=== PATIENT | female | born 1940 | race Caucasian/White ===

== ENCOUNTER 2020-05-19 00:54 | Inpatient (IN) | payer MEDICARE, OTHER ==
[2020-05-19] VITALS (17 sets, daily range): BP systolic 80–109; BP diastolic 28–62
[~2020-05-19] VITALS: Ht 149.9 cm; Wt 66.0 kg
[2020-05-19 01:20] LABS: BASOPHILS % (AUTO) 0.2 % (0-1); EOSINOPHILS % (AUTO) 0 % (0-6); HEMATOCRIT 33.5 % (35.0-45.0); HEMOGLOBIN 11.3 g/dl (12.0-16.0); LYMPHOCYTES # (AUTO) 0.5 X10'3 (1.1-4.8); LYMPHOCYTES % (AUTO) 3.6 % (21-51); MEAN CORPUSCULAR HEMOGLOBIN 31.7 PG (27.0-31.0); MEAN CORPUSCULAR HGB CONC 33.6 g/dL (33.0-36.5); MEAN CORPUSCULAR VOLUME 94.3 FL (78-98); MONOCYTES # (AUTO) 1.2 X10'3 (0-0.9); MONOCYTES % (AUTO) 8.1 % (2-12); NEUTROPHILS # (AUTO) 13.3 X10'3 (1.8-7.7); NEUTROPHILS % (AUTO) 88.1 % (42-75); PLATELET COUNT 281 X10'3 (140-440); RED BLOOD COUNT 3.55 X10'6 (4.20-5.60); RED CELL DISTRIBUTION WIDTH 12.8 % (11.5-14.5); WHITE BLOOD COUNT 15.1 X10'3 (4.5-11.0)
[2020-05-19 01:32] LABS: ALANINE AMINOTRANSFERASE 402 U/L (12-78); ALBUMIN 3.3 G/DL (3.4-5.0); ALBUMIN/GLOBULIN RATIO 0.9 (1.1-1.5); ALKALINE PHOSPHATASE 225 IU/L (46-116); ANION GAP 12 (8-16); ASPARTATE AMINO TRANSFERASE 628 U/L (10-37); BILIRUBIN,TOTAL 2.9 MG/DL (0.1-1.0); BLOOD UREA NITROGEN 35 MG/DL (7-18); BUN/CREATININE RATIO 16.4 (6.6-38.0); CALCIUM 8.7 MG/DL (8.5-10.1); CHLORIDE 104 MMOL/L (99-107); CREATININE 2.14 MG/DL (0.40-0.90); GLUCOSE 160 MG/DL (70-104); POTASSIUM 4.4 MMOL/L (3.5-5.1); SODIUM 141 MMOL/L (135-145); TOTAL CARBON DIOXIDE 25.3 MMOL/L (24-32); eGFR 22 ML/MIN
[2020-05-19] MEDS ORDERED: SERT100T10 PO (01:50)
[2020-05-19] MEDS ORDERED: HYDR12.55 PO (01:50)
[2020-05-19] MEDS ORDERED: LISI-600 PO (01:50)
[2020-05-19] MEDS ORDERED: METF500T PO (01:50)
[2020-05-19] MEDS ORDERED: MELA10TA PO (01:50)
[2020-05-19] MEDS ORDERED: SIMV-42 PO (01:50)
[2020-05-19] MEDS ORDERED: DIPH25CA52 PO (01:50)
[2020-05-19] MEDS ORDERED: potassium CL 10mEq/100ml bag 100 ML IV PRN ×2 (02:20)
[2020-05-19] MEDS ORDERED: morphine 2 MG/ML inj. syringe IV PRN (02:20)
[2020-05-19] MEDS ORDERED: acetaminophen 325mg tablet PO PRN (02:20)
[2020-05-19] MEDS ORDERED: ondansetron/PF 4mg/2ml inj IV PRN (02:20)
[2020-05-19] MEDS ORDERED: glucagon, human recombinant 1mg kit SUBCUT PRN (02:25)
[2020-05-19] MEDS ORDERED: dextrose ORAL solution 15 GM/59 ML bottle PO PRN ×2 (02:25)
[2020-05-19] MEDS ORDERED: dextrose 50%-water 50ml dispensing syringe IV PRN ×2 (02:25)
[2020-05-19] MEDS ORDERED: MESSAGE TO PHARMACY PO ONE (02:25)
[2020-05-19] MEDS ORDERED: insulin Lispro (HumaLOG) vial - multi-dose SQ SCH (02:25)
[2020-05-19 02:43] LABS: HEMOGLOBIN A1C 7.4 % (4.5-6.2)
[2020-05-19] MEDS: normal saline 1000ml 1,000 ML IV SCH ×3 (02:48→22:18)
--- NOTE | 2020-05-19 05:32 | NUR ---
pt arrived to unit earlier in no apparent distress. VSS, will continue to monitor
--- NOTE | 2020-05-19 06:35 | NUR ---
I have received report from Ej GUSTAFSON and had the opportunity to ask questions and assume patient care.
[2020-05-19] MEDS: ceFOXitin 1 GM/D5W 50mL IVPB 50 ML IV SCH ×2 (07:33→19:02)
[2020-05-19] MEDS: lisinopril 20mg tablet PO SCH (07:33)
[2020-05-19] MEDS: sertraline 50mg tablet PO SCH (07:33)
[2020-05-19] MEDS: K and/or MAG REPLACEMENT MC SCH ×2 (07:39→19:27)
[2020-05-19] MEDS: mag hydrox/Alum hydrox/simeth 30ml oral suspension PO PRN (09:22)
--- NOTE | 2020-05-19 12:30 | NUR ---
ERCP to be completed at 1500 today, patient currently NPO and no O2 needed.
--- NOTE | 2020-05-19 13:04 | NUR ---
DM Consult: A1C 7.4 hx T2DM. Written DM ed w/ RD contact information placed in pt chart. Addendum: 05/19/20 at [address] Amended: Links added.
[2020-05-19] MEDS ORDERED: fentaNYL/PF 50MCG/1 ML 2ML syringe ONE (14:43)
[2020-05-19] MEDS ORDERED: MIDAZolam 5mg/5ml vial ONE (14:44)
[2020-05-19] MEDS ORDERED: iohexol 300 MG/1 ML 50ml polymer ONE (14:44)
[2020-05-19] MEDS ORDERED: glucagon, human recombinant 1mg kit ONE (14:44)
[2020-05-19] MEDS ORDERED: LIDOcaine Viscous 15ml cup ONE (14:44)
--- NOTE | 2020-05-19 15:07 | NUR ---
Patient off the unit to ERCP.
--- NOTE | 2020-05-19 17:36 | NUR ---
Patient off the unit.
--- NOTE | 2020-05-19 18:09 | NUR ---
Problems reprioritized. Patient report given, questions answered & plan of care reviewed with Ej GUSTAFSON.
[2020-05-20] VITALS (21 sets, daily range): BP systolic 106–133; BP diastolic 41–61
[2020-05-20] MEDS: ceFOXitin 1 GM/D5W 50mL IVPB 50 ML IV SCH ×3 (01:13→16:09)
[2020-05-20 05:22] LABS: BASOPHILS # (AUTO) 0.2 X10'3 (0-0.2); BASOPHILS % (AUTO) 1.5 % (0-1); EOSINOPHILS # (AUTO) 0.1 X10'3 (0-0.9); EOSINOPHILS % (AUTO) 1.2 % (0-6); HEMATOCRIT 30.8 % (35.0-45.0); HEMOGLOBIN 10.2 g/dl (12.0-16.0); LYMPHOCYTES # (AUTO) 0.9 X10'3 (1.1-4.8); LYMPHOCYTES % (AUTO) 7.4 % (21-51); MEAN CORPUSCULAR HEMOGLOBIN 31.8 PG (27.0-31.0); MEAN CORPUSCULAR HGB CONC 33.2 g/dL (33.0-36.5); MEAN CORPUSCULAR VOLUME 95.5 FL (78-98); MEAN PLATELET VOLUME 7.6 FL (7.4-10.4); MONOCYTES # (AUTO) 0.8 X10'3 (0-0.9); MONOCYTES % (AUTO) 6.7 % (2-12); NEUTROPHILS # (AUTO) 9.9 X10'3 (1.8-7.7); NEUTROPHILS % (AUTO) 83.2 % (42-75); PLATELET COUNT 232 X10'3 (140-440); RED BLOOD COUNT 3.23 X10'6 (4.20-5.60); RED CELL DISTRIBUTION WIDTH 13.1 % (11.5-14.5); WHITE BLOOD COUNT 11.9 X10'3 (4.5-11.0)
[2020-05-20 05:43] LABS: ALANINE AMINOTRANSFERASE 213 U/L (12-78); ALBUMIN 2.6 G/DL (3.4-5.0); ALBUMIN/GLOBULIN RATIO 0.8 (1.1-1.5); ALKALINE PHOSPHATASE 164 IU/L (46-116); ANION GAP 11 (8-16); ASPARTATE AMINO TRANSFERASE 156 U/L (10-37); BILIRUBIN,TOTAL 1.1 MG/DL (0.1-1.0); CALCIUM 7.5 MG/DL (8.5-10.1); CHLORIDE 110 MMOL/L (99-107); CREATININE 1.92 MG/DL (0.40-0.90); GLUCOSE 90 MG/DL (70-104); POTASSIUM 3.9 MMOL/L (3.5-5.1); SODIUM 142 MMOL/L (135-145); TOTAL CARBON DIOXIDE 21.2 MMOL/L (24-32); TOTAL PROTEIN 5.9 G/DL (6.4-8.2); eGFR 25 ML/MIN
[2020-05-20 06:05] LABS: BLOOD UREA NITROGEN 25 MG/DL (7-18)
[2020-05-20] MEDS: sertraline 50mg tablet PO SCH (07:46)
[2020-05-20] MEDS: lisinopril 20mg tablet PO SCH (07:46)
[2020-05-20] MEDS: K and/or MAG REPLACEMENT MC SCH ×2 (07:46→19:50)
[2020-05-20] MEDS: normal saline 1000ml 1,000 ML IV SCH ×3 (07:50→19:54)
--- NOTE | 2020-05-20 12:36 | NUR ---
REPORT CALLED TO SJ GLOVER IN RECOVERY.
--- NOTE | 2020-05-20 12:42 | NUR ---
Transferred to Recovery via bed.
[2020-05-20] MEDS ORDERED: BUPIVAcaine/PF 2.5 mg/ml (0.25%) 30ml vial ONE (13:17)
[2020-05-20] MEDS ORDERED: sevoflurane 250ml liquid IH ONE (13:23)
[2020-05-20] MEDS ORDERED: fentaNYL/PF 50MCG/1 ML 2ML syringe ONE (13:30)
[2020-05-20] MEDS ORDERED: ceFOXitin 2GM-NS 50mL ADDVANT. 50 ML IV ONE (13:30)
[2020-05-20] MEDS ORDERED: propofol inj 20 ML IV ONE (13:32)
[2020-05-20] MEDS ORDERED: midazolam 2 mg/2 ml injection ONE (13:32)
[2020-05-20] MEDS ORDERED: ringers solution, lacted 1,000 ML IV SCH (13:57)
[2020-05-20] MEDS ORDERED: proCHLORperazine 10 MG/2 ml inj IV PRN (14:00)
[2020-05-20] MEDS ORDERED: ondansetron/PF 4mg/2ml inj IV PRN (14:00)
[2020-05-20] MEDS ORDERED: meperidine/PF 25mg/ml syringe IV PRN ×3 (14:00)
[2020-05-20] MEDS ORDERED: morphine 4 MG/ML inj SYRINge IV PRN (14:00)
[2020-05-20] MEDS ORDERED: rocuronium 10mg/ml inj IV ONE (15:03)
[2020-05-20] MEDS ORDERED: neostigmine methylsulfate 1 MG/ML 10ml vial ONE (15:03)
[2020-05-20] MEDS ORDERED: glycopyrrolate 0.2mg/ml inj ONE (15:03)
--- NOTE | 2020-05-20 15:07 | NUR ---
Received from OR via SURGICAL BED , accompanied by Anesthesiologist KRAIG and report given by Anesthesiolgist. PATIENT WITH OMAIRA TO ABDOMEN. VSS. DENIES PAIN. ABDOMINAL DRESSINGS ARE CDI. SAI X3 PRESENT. Addendum: 05/20/20 at 1518 by Vin Garcia RN RN Amended: Links added.
--- NOTE | 2020-05-20 15:23 | NUR ---
100 bg in rr Addendum: 05/20/20 at 1526 by Vin Archuleta - SJ RN Amended: Links added.
[2020-05-20] MEDS: morphine 2 MG/ML inj. syringe IV PRN ×4 (15:35→21:14)
--- NOTE | 2020-05-20 16:02 | NUR ---
Report called to receiving nurse. Transferred via SURGICAL BED WITH NO Belongings . Special Issues communicated to receiving nurse FANG GUSTAFSON.MEDICATED FOR PAIN AND NASUEA PRIOR TO DC TO THE FLOOR. RN PRESENT TO ACCEPT PATIENT. DRESSINGS STILL CDI TO ABDOMEN. Addendum: 05/20/20 at 1622 by Vin Garcia RN RN Amended: Links added.
--- NOTE | 2020-05-20 16:05 | NUR ---
RECEIVED REPORT FROM SJ GLOVER. PATIENT ARRIVED TO FLOOR. VSS. NO COMPLAINTS.
--- NOTE | 2020-05-20 18:18 | NUR ---
Problems reprioritized. Patient report given, questions answered & plan of care reviewed with SJ LAW. Addendum: 05/20/20 at 1834 by Sharon Ardon RN Problems reprioritized. Patient report given, questions answered & plan of care reviewed with SJ SALDIVAR.
--- NOTE | 2020-05-20 20:22 | NUR ---
GI nurse Symone called. Dr. Arceo called her to inform floor nurse that patient will be having another repeat ERCP tomorrow 05/21 @8712. Patient had a ERCP on 05/19 only 3 stones removed. Repeat to attempt to remove 4th stone per GI nurse. Will continue with care.
[2020-05-21] VITALS (17 sets, daily range): BP systolic 97–154; BP diastolic 43–77
[2020-05-21] MEDS: ceFOXitin 1 GM/D5W 50mL IVPB 50 ML IV SCH ×3 (00:32→16:18)
[2020-05-21 05:06] LABS: BASOPHILS % (AUTO) 0.3 % (0-1); EOSINOPHILS % (AUTO) 0.2 % (0-6); HEMATOCRIT 32.3 % (35.0-45.0); HEMOGLOBIN 10.7 g/dl (12.0-16.0); LYMPHOCYTES # (AUTO) 1.3 X10'3 (1.1-4.8); LYMPHOCYTES % (AUTO) 11.6 % (21-51); MEAN CORPUSCULAR HEMOGLOBIN 31.8 PG (27.0-31.0); MEAN CORPUSCULAR HGB CONC 33.1 g/dL (33.0-36.5); MEAN CORPUSCULAR VOLUME 96.1 FL (78-98); MEAN PLATELET VOLUME 7.5 FL (7.4-10.4); MONOCYTES # (AUTO) 0.9 X10'3 (0-0.9); MONOCYTES % (AUTO) 8.1 % (2-12); NEUTROPHILS # (AUTO) 8.7 X10'3 (1.8-7.7); NEUTROPHILS % (AUTO) 79.8 % (42-75); PLATELET COUNT 252 X10'3 (140-440); RED BLOOD COUNT 3.36 X10'6 (4.20-5.60); RED CELL DISTRIBUTION WIDTH 13.5 % (11.5-14.5); WHITE BLOOD COUNT 10.9 X10'3 (4.5-11.0)
[2020-05-21 05:20] LABS: ALANINE AMINOTRANSFERASE 184 U/L (12-78); ALBUMIN 2.6 G/DL (3.4-5.0); ALBUMIN/GLOBULIN RATIO 0.7 (1.1-1.5); ALKALINE PHOSPHATASE 147 IU/L (46-116); ANION GAP 10 (8-16); ASPARTATE AMINO TRANSFERASE 132 U/L (10-37); BILIRUBIN,TOTAL 0.7 MG/DL (0.1-1.0); BLOOD UREA NITROGEN 18 MG/DL (7-18); BUN/CREATININE RATIO 9.7 (6.6-38.0); CALCIUM 7.9 MG/DL (8.5-10.1); CHLORIDE 107 MMOL/L (99-107); CREATININE 1.85 MG/DL (0.40-0.90); GLUCOSE 112 MG/DL (70-104); POTASSIUM 3.9 MMOL/L (3.5-5.1); SODIUM 138 MMOL/L (135-145); TOTAL CARBON DIOXIDE 20.6 MMOL/L (24-32); TOTAL PROTEIN 6.1 G/DL (6.4-8.2); eGFR 26 ML/MIN
[2020-05-21] MEDS: morphine 2 MG/ML inj. syringe IV PRN (05:36)
--- NOTE | 2020-05-21 06:29 | NUR ---
Problems reprioritized. Patient report given, questions answered & plan of care reviewed with Ester GUSTAFSON.
[2020-05-21] MEDS: K and/or MAG REPLACEMENT MC SCH ×2 (08:00→20:00)
[2020-05-21] MEDS: normal saline 1000ml 1,000 ML IV SCH ×2 (08:02→21:12)
[2020-05-21] MEDS: lisinopril 20mg tablet PO SCH (08:02)
[2020-05-21] MEDS: sertraline 50mg tablet PO SCH (08:02)
[2020-05-21] MEDS: mag hydrox/Alum hydrox/simeth 30ml oral suspension PO PRN (08:02)
--- NOTE | 2020-05-21 09:21 | NUR ---
Dr Torres rounded on pt. reviewed bilirubin level, assessed drain, and stated pt is ok to do ERCP if indicated, and pt will likely be ready for discharge on 05/22. Primary RN aware.
[2020-05-21] MEDS ORDERED: glucagon, human recombinant 1mg kit ONE (11:50)
[2020-05-21] MEDS ORDERED: MIDAZolam 5mg/5ml vial ONE (11:50)
[2020-05-21] MEDS ORDERED: fentaNYL/PF 50MCG/1 ML 2ML syringe ONE (11:50)
[2020-05-21] MEDS ORDERED: diphenhydrAMINE 50 mg/ml inj ONE (11:50)
[2020-05-21] MEDS ORDERED: LIDOcaine Viscous 15ml cup ONE (11:50)
[2020-05-21] MEDS ORDERED: iohexol 300 MG/1 ML 50ml polymer ONE (11:50)
--- NOTE | 2020-05-21 12:11 | NUR ---
Patient taken to Angio via wheelchair by RN for ERCP
--- NOTE | 2020-05-21 14:58 | NUR ---
Tried to get a diet for patient called Dr Torres cell phone waiting for call back from Dr Torres
--- NOTE | 2020-05-21 18:00 | NUR ---
PAGER ID: [phone] MESSAGE: Ester-Surg [id number] Re: Malik ERCP complete can patient eat tonalfredo Arceo put in orders for am Clear AAT Addendum: 05/21/20 at 1806 by Ester Benoit RN Received orders from Dr Ragland to start clear diet tonight
--- NOTE | 2020-05-21 18:05 | NUR ---
Problems reprioritized. Patient report given, questions answered & plan of care reviewed with Char GUSTAFSON.
[2020-05-22] MEDS: ceFOXitin 1 GM/D5W 50mL IVPB 50 ML IV SCH ×2 (00:57→08:54)
[2020-05-22 06:15] LABS: BASOPHILS % (AUTO) 0.4 % (0-1); EOSINOPHILS # (AUTO) 0.2 X10'3 (0-0.9); EOSINOPHILS % (AUTO) 2.9 % (0-6); HEMATOCRIT 27.1 % (35.0-45.0); HEMOGLOBIN 9.1 g/dl (12.0-16.0); LYMPHOCYTES # (AUTO) 0.8 X10'3 (1.1-4.8); LYMPHOCYTES % (AUTO) 10.7 % (21-51); MEAN CORPUSCULAR HEMOGLOBIN 31.8 PG (27.0-31.0); MEAN CORPUSCULAR HGB CONC 33.7 g/dL (33.0-36.5); MEAN CORPUSCULAR VOLUME 94.4 FL (78-98); MEAN PLATELET VOLUME 7.4 FL (7.4-10.4); MONOCYTES # (AUTO) 0.9 X10'3 (0-0.9); MONOCYTES % (AUTO) 11.8 % (2-12); NEUTROPHILS # (AUTO) 5.7 X10'3 (1.8-7.7); NEUTROPHILS % (AUTO) 74.2 % (42-75); PLATELET COUNT 220 X10'3 (140-440); RED BLOOD COUNT 2.87 X10'6 (4.20-5.60); WHITE BLOOD COUNT 7.7 X10'3 (4.5-11.0)
[2020-05-22 06:31] LABS: ALANINE AMINOTRANSFERASE 121 U/L (12-78); ALBUMIN 2.2 G/DL (3.4-5.0); ALBUMIN/GLOBULIN RATIO 0.7 (1.1-1.5); ALKALINE PHOSPHATASE 110 IU/L (46-116); ANION GAP 10 (8-16); ASPARTATE AMINO TRANSFERASE 68 U/L (10-37); BILIRUBIN,TOTAL 0.6 MG/DL (0.1-1.0); BLOOD UREA NITROGEN 9 MG/DL (7-18); BUN/CREATININE RATIO 6.4 (6.6-38.0); CALCIUM 7.6 MG/DL (8.5-10.1); CHLORIDE 112 MMOL/L (99-107); CREATININE 1.41 MG/DL (0.40-0.90); GLUCOSE 95 MG/DL (70-104); POTASSIUM 3.7 MMOL/L (3.5-5.1); SODIUM 143 MMOL/L (135-145); TOTAL CARBON DIOXIDE 20.8 MMOL/L (24-32); TOTAL PROTEIN 5.5 G/DL (6.4-8.2); eGFR 36 ML/MIN
--- NOTE | 2020-05-22 06:48 | NUR ---
Patient in room [facility]. I have received report from SJ SALDIVAR and had the opportunity to ask questions and assume patient care.
[2020-05-22 07:00] VITALS: BP 171/63
[2020-05-22] MEDS ORDERED: acetaminophen 325mg tablet PO PRN (07:50)
[2020-05-22] MEDS: K and/or MAG REPLACEMENT MC SCH (08:00)
[2020-05-22] MEDS: mag hydrox/Alum hydrox/simeth 30ml oral suspension PO PRN (08:53)
[2020-05-22] MEDS: sertraline 50mg tablet PO SCH (08:53)
[2020-05-22] MEDS: normal saline 1000ml 1,000 ML IV SCH (08:53)
[2020-05-22] MEDS: lisinopril 20mg tablet PO SCH (08:54)
[2020-05-22 11:00] VITALS: BP 125/40
--- NOTE | 2020-05-22 14:40 | NUR ---
PATIENT APPROPRIATE AT Addendum: 05/22/20 at 1927 by Tyra Kang RN PATIENT APPROPRIATE AND STABLE FOR DISCHARGE, OMAIRA DRAIN TAKEN OUT, IV TAKEN OUT, EDUCATION GIVEN, ALL BELONGINGS SENT WITH PATIENT, PATIENT TAKEN TO LOBBY BY WHEELCHAIR TO AN AWAITING CAR WHERE FAMILY WILL TAKE PATIENT HOME Addendum: 05/22/20 at 1930 by Tyra Kang RN PATIENT'S BELONGINGS RECEIVED FROM [facility], MEDS RECEIVED FROM PHARMACY
== END 2020-05-22 14:40 | disposition home or self-care (01) | DRG 417 ==
LOC: ER 00:55 → ED HOLD 02:18 → SUR 3N 03:55
PROVIDERS: ADMIT Internal Medicine; ATTEND Internal Medicine
PROC: 0FC98ZZ Extirpation of Matter from Common Bile Duct, Via Natural or Artificial Opening Endoscopic (ICD-10-PCS; 2020-05-19)
PROC: 0F798DZ Dilation of Common Bile Duct with Intraluminal Device, Via Natural or Artificial Opening Endoscopic (ICD-10-PCS; 2020-05-19)
PROC: BF101ZZ Fluoroscopy of Bile Ducts using Low Osmolar Contrast (ICD-10-PCS; 2020-05-19)
PROC: 0FT44ZZ Resection of Gallbladder, Percutaneous Endoscopic Approach (ICD-10-PCS; principal; 2020-05-20 13:23)
PROC: 0FPB8DZ Removal of Intraluminal Device from Hepatobiliary Duct, Via Natural or Artificial Opening Endoscopic (ICD-10-PCS; 2020-05-21)
PROC: 0FC98ZZ Extirpation of Matter from Common Bile Duct, Via Natural or Artificial Opening Endoscopic (ICD-10-PCS; 2020-05-21)
PROC: BF101ZZ Fluoroscopy of Bile Ducts using Low Osmolar Contrast (ICD-10-PCS; 2020-05-21)
DX: K80.61 Calculus of gallbladder and bile duct with cholecystitis, unspecified, with obstruction (principal); N17.0 Acute kidney failure with tubular necrosis; E43 Unspecified severe protein-calorie malnutrition; E78.00 Pure hypercholesterolemia, unspecified; D64.9 Anemia, unspecified; I12.9 Hypertensive chronic kidney disease with stage 1 through stage 4 chronic kidney disease, or unspecified chronic kidney disease; E11.22 Type 2 diabetes mellitus with diabetic chronic kidney disease; N18.3 Chronic kidney disease, stage 3 (moderate); E78.5 Hyperlipidemia, unspecified; F32.9 Major depressive disorder, single episode, unspecified; K66.0 Peritoneal adhesions (postprocedural) (postinfection); M19.90 Unspecified osteoarthritis, unspecified site; Z79.84 Long term (current) use of oral hypoglycemic drugs; Z79.899 Other long term (current) drug therapy; Z68.29 Body mass index [BMI] 29.0-29.9, adult; Z98.51 Tubal ligation status
CPT/HCPCS: 36415; 43262; 43264; 43274; 43276; 71045; 80053; 82948; 83036; 85025; 85610; 87081; 88304; 93005; 99152; 99153; 99285; A4215; A4618; A4620; A7000; C1769; C1773; G0378; J0694; J1200; J1610; J1815; J2250; J2270; J2405; J2704; J2710; J3010; J3490; J7030; J7040; J7120; Q9967